=== PATIENT | female | born 2000 | race Caucasian/White ===

== ENCOUNTER 2022-03-15 21:46 | Emergency (ER) | payer OTHER | END 2022-03-15 23:53 | disposition home or self-care (01) | LOC: ER 21:46 | DX: O20.9 Hemorrhage in early pregnancy, unspecified (principal); Z3A.15 15 weeks gestation of pregnancy ==

== ENCOUNTER 2022-08-22 11:24 | Outpatient (CLI) | payer OTHER ==
[~2022-08-22 11:24] MED LIST: PRENATABS RX T1 EACH PO
== END 2022-08-22 12:00 | disposition home or self-care (01) ==
LOC: NST 11:24
PROVIDERS: ATTEND Obstetrics & Gynecology Maternal & Fetal Medicine
DX: Z34.83 Encounter for supervision of other normal pregnancy, third trimester (principal)

== ENCOUNTER 2022-08-25 05:07 | Inpatient (IN) | payer OTHER ==
[~2022-08-25] VITALS: Ht 157.5 cm; Wt 68.0 kg
== END 2022-08-27 11:34 | disposition home or self-care (01) | DRG 798 ==
LOC: LDR 05:07 → OB/GYN 05:07
PROVIDERS: ADMIT Obstetrics & Gynecology; ATTEND Obstetrics & Gynecology
PROC: 0UB70ZZ Excision of Bilateral Fallopian Tubes, Open Approach (ICD-10-PCS; 2022-08-25)
PROC: 4A1HXCZ Monitoring of Products of Conception, Cardiac Rate, External Approach (ICD-10-PCS; 2022-08-25)
PROC: 10E0XZZ Delivery of Products of Conception, External Approach (ICD-10-PCS; principal; 2022-08-25 22:30)
DX: O80 Encounter for full-term uncomplicated delivery (principal); Z37.0 Single live birth; Z3A.39 39 weeks gestation of pregnancy; Z20.822 Contact with and (suspected) exposure to COVID-19; Z30.2 Encounter for sterilization